=== PATIENT | male | born 1985 | race Caucasian/White ===

== ENCOUNTER 2022-01-09 10:48 | Emergency (ER) | payer OTHER, SELFPAY ==
[2022-01-09 11:00] VITALS: BP 138/93; PULSE 79; RESP 16; TEMP 36.2; O2SAT 100
--- NOTE | 2022-01-09 11:23 | ED.EXTPRO ---
HPI - Extremity Problem General Chief complaint: Wound/Laceration Stated complaint: Left hand ring finger injury Time Seen by Provider: 01/09/22 10:52 Source: patient Mode of arrival: ambulatory Limitations: no limitations History of Present Illness HPI Narrative: patient presents with a laceration to his left anterior ring finger occurred earlier today while using a band saw today is up-to-date with his tetanus currently not bleeding no numbness or tingling has good range of motion in his fingers. Onset (ago): hour(s) Location: left and other ( non gaping laceration to his left ring finger proximally 2.5cm in length) Severity scale (1-10): 2 Related Data Allergies Allergy/AdvReac Type Severity Reaction Status Date / Time No Known Allergies Allergy Verified 01/09/22 11:09 Review of Systems Review of Systems: All systems reviewed & are unremarkable except as noted in HPI and below Exam Const: General: healthy appearing and no acute distress Limitations: no limitations HENMT: Head: normal to inspection Eyes: Conjunctivae: conjunctivae normal Pupils: Equal, round and reactive pupils present EOM: EOMs intact bilaterally Direct Ophthalmoscopy: no photophobia Neck: Neck: normal visual inspection, no lymphadenopathy and no meningeal signs Chest: Chest palpation & inspection: normal inspection of the chest Resp: Effort & Inspection: normal respiratory effort Cardio: Rate: regular rate Rhythm: regular rhythm GI: GI Palp: Yes Soft to palpation Auscultation: normal bowel sounds Skin: General skin exam: normal color Wounds: wounds noted Neuro: General: patient oriented x3 Extrem: General: normal to inspection and no clubbing, cyanosis or edema Psych: Mental Status: mental status grossly normal Course Course Emergency Course: Patient tolerated procedure well Dermabond was used to his left ring finger. Vital Signs Vital signs: Vital Signs Temperature 36.2 C L 01/09/22 11:00 Pulse Rate 79 01/09/22 11:00 Respiratory Rate 16 01/09/22 11:00 Blood Pressure 138/93 H 01/09/22 11:00 Pulse Oximetry 100 01/09/22 11:00 Oxygen Delivery Room Air 01/09/22 11:00 Temperature 36.2 C L 01/09/22 11:00 Pulse Rate 79 01/09/22 11:00 Respiratory Rate 16 01/09/22 11:00 Blood Pressure 138/93 H 01/09/22 11:00 Pulse Oximetry 100 01/09/22 11:00 Oxygen Delivery Room Air 01/09/22 11:00 Procedures Laceration Laceration 1: Date: 01/09/22 Time: 11: Site: upper extremity Side (If applicable): left Size (cm): 2.5 Description: linear Pre-repair: wound explored and irrigated ====== Skin Level ====== Skin layer closed with: dermabond ====== Subcutaneous Layer ====== ====== Muscle Layer ====== ====== Tendon Layer ====== Critical Care Time Critical Care Time Critical Care Time: No Discharge Plan Discharge Clinical Impression: Laceration Patient Disposition: Home, Self-Care Condition: Stable Instructions: Antibiotic Form, Laceration (ED), Skin Adhesive Care (ED) Additional Instructions: Follow-up with primary care physician if symptoms persist or worsen. Follow-up/Referrals: UNKNOWN,DOCTOR [Primary Care Provider] - Time of Disposition: :
[2022-01-09 11:39] VITALS: BP 138/93; RESP 16; TEMP 36.2; O2SAT 100
== END 2022-01-09 11:41 | disposition home or self-care (01) ==
PROVIDERS: Emergency Provider Emergency Medicine
DX: S61.215A Laceration without foreign body of left ring finger without damage to nail, initial encounter (principal); W31.2XXA Contact with powered woodworking and forming machines, initial encounter
CPT/HCPCS: 12001; 99282

== ENCOUNTER 2023-10-20 14:53 | Observation (INO) | payer OTHER, MEDICARE, SELFPAY ==
[2023-10-20] VITALS (8 sets, daily range): BP systolic 130–144; BP diastolic 82–97; PULSE 46–72; RESP 16–17; TEMP 36.2–36.4; O2SAT 96–99; BMI 37.3
--- NOTE | ~2023-10-20 | CT_ITS ---
EXAMINATION: CT abdomen pelvis wo con DATE: 10/20/2023 15:42 INDICATION: Right-sided flank pain for 3 days TECHNIQUE: Computed tomography (CT) of the abdomen and pelvis was performed without intravenous contr ast. The dose-length product was 1585.83 mGy-cm. Automated exposure control and iterative reconstruct ion technique were employed. COMPARISON: None. FINDINGS: There is a 5 mm distal right ureteral stone with mild hydronephrosis. There are surgical ch anges of the upper abdomen on the right involving these liver. Spleen is enlarged. The pancreas, adre nal glands and left kidney are unremarkable. Nonobstructive bowel gas pattern. There is a sigmoid col on anastomosis. No significant vascular abnormality. No lymphadenopathy. There is grade 1 spondylolis thesis at L5-S1 secondary to spondylolysis bilaterally. Mild lumbar spondylosis. IMPRESSION: 1. Distal right ureteral stone just proximal to the UVJ measuring 5 mm. Mild hydronephrosis. 2: Splenomegaly. Reviewed, dictated and finalized at location B. IMPRESSION: 1. Distal right ureteral stone just proximal to the UVJ measuring 5 mm. Mild hy dronephrosis. 2: Splenomegaly.
--- NOTE | 2023-10-20 15:13 | ED.ABDPAIN ---
HPI - Abdominal Pain General Chief Complaint: Urogenital-Male <Nikolas Murrieta MD - Last Filed: 10/20/23 16:40> Stated Complaint: flank pain <Nikolas Murrieta MD - Last Filed: 10/20/23 16:40> Time Seen by Provider: 10/20/23 15:12 <Nikolas Murrieta MD - Last Filed: 10/20/23 16:40> Source: patient <Nikolas Murrieta MD - Last Filed: 10/20/23 16:40> Mode of arrival: ambulatory <Nikolas Murrieta MD - Last Filed: 10/20/23 16:40> Limitations: no limitations <Nikolas Murrieta MD - Last Filed: 10/20/23 16:40> History of Present Illness HPI narrative: 38-year-old male with a history of colon cancer diagnosed days ago status post partial colectomy on chemo, partial hepatectomy for liver lesion 1 year after the initial lesion, 5 mm pulmonary nodule in the right lower lobe, cholecystectomy, appendectomy had the follow-up CT scan done 4 days ago which revealed a 4 mm stone in right lower pole of the kidney. The patient presented to the ER for -- right flank pain which radiates down to penis. The pain was initially noted to be 8/10 and is currently 4/10. No dysuria or hematuria. The pain is colicky. No exacerbating or relieving factors. No fever or chills. <Nikolas Murrieta MD - Last Filed: 10/20/23 16:40> MD elicited complaint: flank pain <Nikolas Murrieta MD - Last Filed: 10/20/23 16:40> Pertinent past history: kidney stones and other ( Partial colectomy) <Nikolas Murrieta MD - Last Filed: 10/20/23 16:40> Onset (ago): day(s) ( 1 day) <Nikolas Murrieta MD - Last Filed: 10/20/23 16:40> Pain Consistency: intermittent <Nikolas Murrieta MD - Last Filed: 10/20/23 16:40> Location: R flank <Nikolas Murrieta MD - Last Filed: 10/20/23 16:40> Quality: aching <Nikolas Murrieta MD - Last Filed: 10/20/23 16:40> Radiation: other ( right flank pain radiates down to the penis) <Nikolas Murrieta MD - Last Filed: 10/20/23 16:40> Exacerbating factors: nothing <Nikolas Murrieta MD - Last Filed: 10/20/23 16:40> Relieving factors: nothing <Nikolas Murrieta MD - Last Filed: 10/20/23 16:40> Associated symptoms: denies other symptoms <Nikolas Murrieta MD - Last Filed: 10/20/23 16:40> Related Data Home Medications: Home Medications Medication Instructions Recorded Confirmed allopurinol 100 mg tablet 100 mg PO DAILY 10/20/23 10/20/23 atorvastatin 40 mg tablet 40 mg PO DAILY 10/20/23 10/20/23 lisinopril 20 mg tablet 20 mg PO DAILY 10/20/23 10/20/23 lorazepam 2 mg tablet 2 mg PO DAILY 10/20/23 10/20/23 trazodone 50 mg tablet 50 mg PO DAILY 10/20/23 10/20/23 <Nikolas Murrieta MD - Last Filed: 10/20/23 16:40> Allergies/Adverse Reactions: Allergies Allergy/AdvReac Type Severity Reaction Status Date / Time No Known Allergies Allergy Verified 10/20/23 15:01 <Nikolas Murrieta MD - Last Filed: 10/20/23 16:40> Review of Systems Review of Systems: All systems reviewed & are unremarkable except as noted in HPI and below <Nikolas Murrieta MD - Last Filed: 10/20/23 16:40> Constitutional: Constitutional: Reports as per HPI and Reports no additional constitutional complaints <Nikolas Murrieta MD - Last Filed: 10/20/23 16:40> Eyes: Eyes: Reports as per HPI and Reports no additional eye complaints <Nikolas Murrieta MD - Last Filed: 10/20/23 16:40> ENT: Reports system reviewed and no additional complaints, except as documented and Reports as per HPI <Nikolas Murrieta MD - Last Filed: 10/20/23 16:40> Cardiovascular: Cardiovascular: Reports as per HPI and Reports no additional cardiovascular complaints <Nikolas Murrieta MD - Last Filed: 10/20/23 16:40> Respiratory: Respiratory: Reports as per HPI and Reports no additional respiratory complaints <Nikolas Murrieta MD - Last Filed: 10/20/23 16:40> Gastrointestinal: Gastrointestinal: Reports as per HPI and Reports no additional gastrointe
[2023-10-20 16:51] LABS: Basophils Absolute Auto 0.04 K/mm3 (0.00-0.10); Basophils Percent Auto 0.8 % (0.0-1.0); Eosinophils Absolute Auto 0.24 K/mm3 (0.02-0.50); Eosinophils Percent Auto 4.6 % (1.0-6.0); Hematocrit 41.4 % (40.0-54.0); Hemoglobin 14.1 g/dL (14.0-18.0); Immature Granulocyte Absolute 0.01 K/mm3 (0.00-0.00); Immature Granulocyte Percent A 0.2 % (0.0-0.0); Lymphocytes Absolute Auto 1.39 K/mm3 (1.10-4.50); Lymphocytes Percent Auto 26.7 % (18.0-42.0); Mean Corpuscular HGB Conc 34.1 g/dL (32-36); Mean Corpuscular Hemoglobin 30.3 pg (27.0-31.0); Mean Corpuscular Volume 88.8 fL (78.0-102.0); Mean Platelet Volume 9.9 fl (8.7-11.0); Monocytes Absolute Auto 0.37 K/mm3 (0.10-0.90); Monocytes Percent Auto 7.1 % (2.0-11.0); Neutrophils Absolute Auto 3.15 K/mm3 (1.70-7.20); Neutrophils Percent Auto 60.6 % (50.0-70.0); Platelet Count Result 149 K/mm3 (150-420); Red Blood Count 4.66 M/mm3 (4.70-6.10); Red Cell Distribution Width 13.4 % (11.6-14.4); White Blood Count 5.2 K/mm3 (4.8-10.8)
[2023-10-20 17:00] LABS: Appearance Urine Clear (Clear); Bilirubin Urine Negative (Negative); Blood Urine 2+ (Negative); Color Urine Light Yellow (Yellow); Glucose Urine UA Negative (Negative); Ketones Urine Negative (Negative); Leukocyte Esterase Ur Negative LEU/UL (Negative); Nitrate Urine Negative (Negative); Protein Urine Negative (Negative); Specific Grav Ur <= 1.005 (1.010-1.020); Urobilinogen Urine 0.2 mg/dL (0.2-1.0); pH Urine 5.5 (5.0-8.0)
[2023-10-20] MEDS: TAMSULOSIN HCL 0.4 MG CAPSULE PO (17:03)
[2023-10-20] MEDS: SODIUM CHLORIDE 0.9% IV 1,000 ML 999 ML IV CONT (17:04)
[2023-10-20] MEDS: KETOROLAC 30 MG/ML VIAL (*BKC) IV PUSH (17:04)
[2023-10-20 17:07] LABS: Alanine Aminotransferase 47 U/L (16-63); Albumin Level 3.8 g/dL (3.4-5.0); Alkaline Phosphatase 100 U/L (46-116); Anion Gap 10 mmol/L (4-12); Aspartate Amino Transferase 23 U/L (15-37); Bilirubin,Total 0.6 mg/dL (0.00-1.00); Blood Urea Nitrogen 18 mg/dL (7-18); Calcium 8.6 mg/dL (8.5-10.1); Carbon Dioxide 27 mmol/L (21-32); Chloride 101 mmol/L (98-108); Estimated Glomerular Filt Rate > 60; Glucose 98 mg/dL (70-99); Osmolality Calculated 287 mOsm/kg (285-295); Potassium 3.6 mmol/L (3.5-5.1); Sodium 138 mmol/L (136-145); Total Protein 7.1 g/dL (6.4-8.2)
[2023-10-20 17:10] LABS: Add Urine Microscopic? YES
[2023-10-20 17:11] LABS: RBC Urine None seen /hpf (0-2)
[2023-10-20 17:12] LABS: Lactic Acid Reflex 0.5 mmol/L (0.4-2.0)
[2023-10-20 17:22] LABS: Lipase 34 U/L (16-77)
[2023-10-20] MEDS: SODIUM CHLORIDE 0.9% IV 1,000 ML 100 ML IV CONT (19:27)
[2023-10-20] MEDS: traZODone HCL 50 MG TABLET PO (20:31)
[2023-10-20] MEDS: LORazepam (*CRX) 1 MG TABLET PO (20:32)
[2023-10-21] VITALS: BP 144/85; PULSE 66; RESP 16; TEMP 36.4; O2SAT 97
[2023-10-21] MEDS: SODIUM CHLORIDE 0.9% IV 1,000 ML 100 ML IV CONT (05:27)
[2023-10-21 07:52] VITALS: BP 135/90; PULSE 56; RESP 16; TEMP 36.1; O2SAT 96
[2023-10-21] MEDS: ENOXAPARIN 40 MG/0.4 ML SYRINGE SUB-Q (08:44)
[2023-10-21] MEDS: ATORVASTATIN 40 MG TABLET PO (08:45)
[2023-10-21] MEDS: allopurinoL 100 MG TABLET PO (08:45)
[2023-10-21] MEDS: lisinopriL 20 MG TABLET PO (08:45)
--- NOTE | 2023-10-21 10:37 | PM.SD2 ---
Same Day Admit/Disch: HPI History of Present Illness Chief complaint: URETHEROLITHIASIS Narrative: Balwinder Connelly is a 38 year old male See the ED note PMFSH Past Medical History Medical History History of chemotherapy Hx of colon cancer, stage IV (~2021) Hx of radiation therapy Social History Social History Social History: Caffeine-daily Smoking packs per day: 5 Smoking cigarettes per day: 100.0 Years smoked: 3 Smoking pack-years: 15.00 Smoking status: Former smoker Tobacco type: cigarettes Second hand tobacco smoke exposure: Yes Smoking end date: 10/19/18 Alcohol intake: current Drinks per week: 2 Alcohol use details: occasional Substance use: never Do You Feel Safe in your Home?: Yes Lack of Transportation: No Lack of Food: Never True Current Housing: I Have Housing Concerned About Future Housing: No Difficulty Paying Gas/Electric Bills: No Difficulty Paying for Meds: No Currently Unemployed: No Education: Associate Degree Difficulty w/ Childcare or Family Care: No Spiritual care concerns: No Same Day Admit/Disch: Med Pre-admit Medications Home Medications Medication Instructions Recorded Confirmed Type allopurinol 100 mg tablet 100 mg PO DAILY 10/20/23 10/20/23 History atorvastatin 40 mg tablet 40 mg PO DAILY 10/20/23 10/20/23 History lisinopril 20 mg tablet 20 mg PO DAILY 10/20/23 10/20/23 History lorazepam 2 mg tablet 2 mg PO DAILY 10/20/23 10/20/23 History trazodone 50 mg tablet 50 mg PO DAILY 10/20/23 10/20/23 History tamsulosin 0.4 mg capsule (Flomax) 0.4 mg PO DAILY #30 caps 10/21/23 Rx Review of Systems Review of Systems abdominal pain All systems reviewed & are unremarkable except as noted in HPI and below Constitutional Constitutional: Reports as per HPI and Reports no additional constitutional complaints Eyes Eyes: Reports as per HPI and Reports no additional eye complaints ENT Reports system reviewed and no additional complaints, except as documented and Reports as per HPI Cardiovascular Cardiovascular: Reports as per HPI and Reports no additional cardiovascular complaints Respiratory Respiratory: Reports as per HPI and Reports no additional respiratory complaints Gastrointestinal Gastrointestinal: Reports as per HPI and Reports no additional gastrointestinal complaints Musculoskeletal Musculoskeletal: Reports no additional musculoskeletal complaints and Reports as per HPI Integumentary/Breasts Skin/Breast: Reports system reviewed and no additional complaints, except as docu and Reports as per HPI Neurologic Reports system reviewed and no additional complaints, except as documented and Reports as per HPI Psychiatric Psychiatric: Reports no additional psychiatric complaints and Reports as per HPI Endocrine Endocrine: Reports no additional endocrine complaints and Reports as per HPI Hematologic/Lymphatic Hematologic/Lymphatic: Reports no additional hematologic/lymphatic complaints and Reports as per HPI Allergic/Immunologic Allergic/Immunologic: Reports no additional allergic/immunologic complaints and Reports as per HPI Exam Narrative: No pain noted. Const: General: healthy appearing, no acute distress and well nourished Nutritional Appearance: well nourished Orientation/consciousness: patient oriented x3 Limitations: no limitations HENMT: Head: normal to inspection Ears: external ears normal Face/Nose/Sinus: Normal external nose present and normal facial exam Face and sinus: normal facial exam Mouth: Yes Normal oral and palatal mucosa present Throat: posterior oropharynx normal Eyes: Conjunctivae: conjunctivae normal Pupils: Equal, round and reactive pupils present EOM: EOMs intact bilaterally Direct Ophthalmoscopy: no photophobia Neck: Neck: normal visual inspection, no lymphadenopathy and no meningeal signs Chest:
--- NOTE | 2023-10-21 13:00 | PC.NURSE ---
Discharge instructions given to patient and his mother. Patient and mom voiced understanding. IV site discontinued in anticipation of discharge. Patient left unit on foot, accompanied by his mother and refused w/c. Patient left hospital property in privately owned vehicle.
--- NOTE | 2023-10-22 09:22 | PC.NURSE ---
Discharge call back attempted, no answer
== END 2023-10-21 13:00 | disposition home or self-care (01) ==
LOC: CHSED 18:05 → CHS2ND 18:10
PROVIDERS: Internal Medicine Critical Care Medicine; Admitting Provider Internal Medicine; Emergency Provider Family Medicine; PCP Internal Medicine Infectious Disease; Visit Provider Internal Medicine
DX: N13.2 Hydronephrosis with renal and ureteral calculous obstruction (principal); N17.9 Acute kidney failure, unspecified; E86.0 Dehydration; C18.9 Malignant neoplasm of colon, unspecified; C78.00 Secondary malignant neoplasm of unspecified lung; C78.89 Secondary malignant neoplasm of other digestive organs; Z90.49 Acquired absence of other specified parts of digestive tract; Z92.21 Personal history of antineoplastic chemotherapy; Z92.3 Personal history of irradiation; Z87.891 Personal history of nicotine dependence; Z79.899 Other long term (current) drug therapy
CPT/HCPCS: 36415; 74176; 80053; 81001; 83605; 83690; 85025; 96361; 96372; 96374; 96375; 99285; A9270; G0378; J1650; J1885; J7030

== ENCOUNTER 2023-11-06 18:36 | Emergency (ER) | payer OTHER, MEDICARE, SELFPAY ==
[2023-11-06] VITALS (17 sets, daily range): BP systolic 126–166; BP diastolic 77–111; PULSE 12–55; RESP 16–20; TEMP 35.2–36.7; O2SAT 89–100
--- NOTE | ~2023-11-06 | CT_ITS ---
CT abdomen pelvis w con Ordering provider: Edward Montoya MD History: . lower abdominal pain . Comparison: October 20, 2023 Technique: CT abdomen with IV and without oral contrast. Radiation reduction technique utilized. DLP is 1349.03 mGy. 100 mL Omnipaque 350 was given IV. Findings: VISUALIZED LOWER CHEST: Bilateral dependent atelectatic changes. UPPER ABDOMINAL ORGANS: Liver: Postoperative changes in the right lobe of the liver. Enlargement of the left lobe. Gallbladder: Status post cholecystectomy. Spleen: Splenomegaly. Stomach/duodenum: Normal. Pancreas: Normal. Adrenals: Normal. Kidneys: Right hydronephrotic changes with a stone in the lower ureter measuring 7 mm. Dilatation of the right ureter is noted. The left kidney is unremarkable. Bonilla catheter is seen in the area and bladder. Slightly thickened wall of the urinary bladder is no janelle most likely due to underfilling. VISUALIZED BOWEL AND MESENTERY: Postoperative changes in the area of the sigmoid colon. No evidence o f diverticulitis. Status post appendectomy. The bowel is otherwise normal. No free air or free fluid. No mesenteric lymphadenopathy. RETROPERITONEUM: Normal aorta. No retroperitoneal lymphadenopathy. MUSCULOSKELETAL: Bilateral fat containing inguinal hernias otherwise, The superficial soft tissues ar e normal. Age appropriate degenerative changes of the spine. Spondylolysis at the level of L5-S1. IMPRESSION: Right lower ureteric stone with right hydronephrotic changes. No evidence of diverticulitis or intestinal obstruction. Postoperative changes in the liver with hypertrophy of the left lobe. Splenomegaly Reviewed, dictated and finalized at location A.
--- NOTE | 2023-11-06 18:43 | ED.MALEGU ---
HPI - Male Genitourinary General Chief complaint: Urogenital-Male Stated complaint: flank pain Time Seen by Provider: 11/06/23 18:38 Source: patient Mode of arrival: ambulatory Limitations: no limitations History of Present Illness HPI Narrative: 38 year old male presents to the Emergency Department complaining of unable to urinate. States having bladder /abdominal pain. Vomited once prior to arrival. Feels like bladder is full, but unable to urinate. Patient thinks he has a kidney stone blocking outflow. Patient was seen here 2 weeks ago and was diagnosed with kidney stone. States was advised stone was at junction of ureter and bladder at that time. History of Stage IV colon cancer with partial colectomy and radiation /chemotherapy. Onset (ago): hour(s) Duration: constant Relieving factors: none Related Data Home Medications Medication Instructions Recorded Confirmed allopurinol 100 mg tablet 100 mg PO DAILY 10/20/23 10/20/23 atorvastatin 40 mg tablet 40 mg PO DAILY 10/20/23 10/20/23 lisinopril 20 mg tablet 20 mg PO DAILY 10/20/23 10/20/23 lorazepam 2 mg tablet 2 mg PO DAILY 10/20/23 10/20/23 trazodone 50 mg tablet 50 mg PO DAILY 10/20/23 10/20/23 Allergies Allergy/AdvReac Type Severity Reaction Status Date / Time No Known Allergies Allergy Verified 10/20/23 15:01 Review of Systems Review of Systems: All systems reviewed & are unremarkable except as noted in HPI and below Constitutional: Constitutional: Reports as per HPI, Reports chills and Reports fever(s) Eyes: Eyes: Reports as per HPI ENT: Reports system reviewed and no additional complaints, except as documented Cardiovascular: Cardiovascular: Reports as per HPI Respiratory: Respiratory: Reports as per HPI Gastrointestinal: Gastrointestinal: Reports as per HPI, Reports abdominal pain and 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) Genitourinary: Genitourinary: Reports no additional male genitourinary complaints Comments: feels like bladder full and unable to urinate Musculoskeletal: Musculoskeletal: Reports no additional musculoskeletal complaints Neurologic: Reports system reviewed and no additional complaints, except as documented PMF Past Medical History Medical History History of chemotherapy Hx of colon cancer, stage IV (~2021) Hx of radiation therapy Social History Social History Social History: Caffeine-daily Smoking packs per day: 5 Smoking cigarettes per day: 100.0 Years smoked: 3 Smoking pack-years: 15.00 Smoking status: Former smoker Tobacco type: cigarettes Second hand tobacco smoke exposure: Yes Smoking end date: 10/19/18 Alcohol intake: current Drinks per week: 2 Alcohol use details: occasional Substance use: never Do You Feel Safe in your Home?: Yes Lack of Transportation: No Lack of Food: Never True Current Housing: I Have Housing Concerned About Future Housing: No Difficulty Paying Gas/Electric Bills: No Difficulty Paying for Meds: No Currently Unemployed: No Education: Associate Degree Difficulty w/ Childcare or Family Care: No Spiritual care concerns: No Exam Const: General: diaphoretic Nutritional Appearance: obese Limitations: no limitations Other: mild distress HENMT: Head: normal to inspection Face/Nose/Sinus: Normal external nose present Face and sinus: normal facial exam Mouth: Yes Normal oral and palatal mucosa present Eyes: Pupils: Equal, round and reactive pupils present EOM: EOMs intact bilaterally Direct Ophthalmoscopy: no photophobia Neck: Neck: normal visual inspection Chest: Chest palpation & inspection: normal inspection of the chest Resp: Effort & Inspection: normal respiratory effort Auscultation: clear to auscultation bilaterally Cardio: Rate: regular rate Rhythm: regular rhythm GI: Inspection: non-distended GI Palp:
--- NOTE | 2023-11-06 18:53 | PC.NURSE ---
184: RN attempted bladder scan and only read 133ml -> I then attempted after and got a value of 134ml.
[2023-11-06 19:04] LABS: Basophils Absolute Auto 0.05 K/mm3 (0.00-0.10); Basophils Percent Auto 0.7 % (0.0-1.0); Eosinophils Percent Auto 2.7 % (1.0-6.0); Hematocrit 44.2 % (40.0-54.0); Hemoglobin 15.2 g/dL (14.0-18.0); Immature Granulocyte Absolute 0.02 K/mm3 (0.00-0.00); Immature Granulocyte Percent A 0.3 % (0.0-0.0); Lymphocytes Absolute Auto 2.41 K/mm3 (1.10-4.50); Lymphocytes Percent Auto 32.7 % (18.0-42.0); Mean Corpuscular HGB Conc 34.4 g/dL (32-36); Mean Corpuscular Volume 87.4 fL (78.0-102.0); Mean Platelet Volume 9.3 fl (8.7-11.0); Monocytes Absolute Auto 0.71 K/mm3 (0.10-0.90); Monocytes Percent Auto 9.6 % (2.0-11.0); Neutrophils Absolute Auto 3.97 K/mm3 (1.70-7.20); Platelet Count Result 195 K/mm3 (150-420); Red Blood Count 5.06 M/mm3 (4.70-6.10); Red Cell Distribution Width 13.2 % (11.6-14.4); White Blood Count 7.4 K/mm3 (4.8-10.8)
[2023-11-06] MEDS: HYDROmorphone HCL INJ (*CRX) 2 MG/ML VIAL 1 MG IV PUSH ×2 (19:14→20:25)
[2023-11-06] MEDS: ONDANSETRON INJ 4 MG/2 ML VIAL IV PUSH (19:14)
--- NOTE | 2023-11-06 19:14 | PC.NURSE ---
PT HAD REQUESTED ESCOBAR CATHETER, ERP WAS NOTIFIED AND ORDER WAS PLACED. 16F ESCOBAR IS PLACED WITHOUT DIFFICULTY. PT HAD APPROX 30 ML CLEAR YELLOW URINE NOTED DURING INSERTION AROUND THE CATHETER APPROX 10 ML IN BAG. PT REPORTS HE HAD PAIN RELIEF INITIALLY, HOWEVER THE PAIN RETURNED QUICKLY AFTER PLACEMENT. REPORT TO [facility]OCHILT RIVAS. ERP IS AWARE OF ABOVE.
[2023-11-06] MEDS: SODIUM CHLORIDE 0.9% IV 1,000 ML 150 ML IV CONT ×2 (19:15→22:29)
[2023-11-06 19:20] LABS: Alanine Aminotransferase 54 U/L (16-63); Albumin Level 4.2 g/dL (3.4-5.0); Alkaline Phosphatase 88 U/L (46-116); Amylase 23 U/L (25-115); Anion Gap 10 mmol/L (4-12); Aspartate Amino Transferase 27 U/L (15-37); Bilirubin,Total 1.1 mg/dL (0.00-1.00); Blood Urea Nitrogen 20 mg/dL (7-18); Calcium 9.2 mg/dL (8.5-10.1); Carbon Dioxide 29 mmol/L (21-32); Chloride 99 mmol/L (98-108); Estimated CRCL calculation 90 ml/min; Estimated Glomerular Filt Rate 56; Glucose 112 mg/dL (70-99); Lipase 19 U/L (16-77); Osmolality Calculated 289 mOsm/kg (285-295); Potassium 3.5 mmol/L (3.5-5.1); Sodium 138 mmol/L (136-145); Total Protein 7.5 g/dL (6.4-8.2)
--- NOTE | 2023-11-06 19:50 | PC.NURSE ---
Pt returned from CT via w/c and started having diaphoresis and feeling very nauseated again. He is pale in color, he denies c/p. Pt placed on monitor when arriving back from CT and noted s-leanna w/ HR of 45. ERP Dr Montoya notified and orders obtained for EKG and add on trop level to labs.
--- NOTE | 2023-11-06 19:58 | ECG_ITS ---
Test Date: 2023-11-06 20:04:09 Measurements Intervals [place] Rate: 43 P: 21 FL: 184 QRS: 36 QRSD: 117 T: 22 QT: 465 QTc: 396 Interpretive Statements SINUS BRADYCARDIA MODERATE INTRAVENTRICULAR CONDUCTION DELAY [110+ ms QRS DURATION] No previous ECG available for comparison Electronically Signed On 11-07-2023 11:42:11 CDT by Moi Worley M.D.
[2023-11-06 20:16] LABS: Troponin I 6.2 ng/L (0.00-60.4)
[2023-11-06 20:37] LABS: Appearance Urine Clear (Clear); Bilirubin Urine Negative (Negative); Blood Urine 3+ (Negative); Color Urine Yellow (Yellow); Glucose Urine UA Negative (Negative); Ketones Urine Negative (Negative); Leukocyte Esterase Ur Negative (Negative); Nitrate Urine Negative (Negative); Protein Urine 1+ (Negative); Specific Grav Ur 1.025 (1.010-1.020); Urobilinogen Urine 0.2 mg/dL (0.2-1.0); pH Urine 5.5 (5.0-8.0)
[2023-11-06 20:42] LABS: Add Urine Microscopic? YES; Amorphous Sediment Urine Moderate; Squamous Epithelial Cell Urine Rare /hpf (Few); WBC Urine 0-3 /hpf (0-3)
[2023-11-06 20:43] LABS: Bacteria Urine 1+ /hpf; Mucus Urine Few /lpf
--- NOTE | 2023-11-06 21:25 | PC.NURSE ---
ERP in to discuss CT findings w/ pt and his parents. Pt will need transfer to urologist, pt wanting to go to [facility] since this is where all his oncology Drs. are located.
--- NOTE | 2023-11-06 22:06 | PC.NURSE ---
Pt will go to ER at [facility] per Dr Lerner request. ERP spoke w/ ER Dr Choudhary accepting for transfer. Report given and nurse on line at [facility] ER report. Pt and family informed of transfer to [facility].
--- NOTE | 2023-11-06 22:21 | PC.NURSE ---
Pt resting more comfortably. VSS w/ monitor showing SBrady at HR 44. Pt c/o some pain returning. Bonilla inplace w/ minimal urine output noted, IVF infusing as per order. [facility] paged for transfer, paperwork signed for transfer.
--- NOTE | 2023-11-06 22:45 | PC.NURSE ---
Pt has noted dribbling of urine around catheter tip and he has approx 150 ml of urine in lozada. Order obtained from ERP before transfer to remove lozada catheter. Pt agrees to have catheter removed at this time.
--- NOTE | 2023-11-06 22:50 | PC.NURSE ---
Call back to [facility] and spoke w/ discharge planner and updated report given on lozada cath removal before transport.
== END 2023-11-06 22:45 | disposition short-term general hospital (02) ==
PROVIDERS: Emergency Provider Emergency Medicine; PCP Internal Medicine Infectious Disease
DX: N13.2 Hydronephrosis with renal and ureteral calculous obstruction (principal); C18.9 Malignant neoplasm of colon, unspecified; R00.1 Bradycardia, unspecified
CPT/HCPCS: 36415; 74177; 80053; 81001; 82150; 83690; 84484; 85025; 93005; 96361; 96374; 96375; 96376; 99285; J1170; J2405; J7030; Q9967